=== PATIENT | male | born 1940 | race Caucasian/White ===

== ENCOUNTER 2020-03-12 15:41 | Emergency (ER) | payer MEDICARE ==
[~2020-03-12] VITALS: Ht 172.7 cm; Wt 107.8 kg
[~2020-03-12 15:41] MED LIST: AMLO5TAB10 PO; ASPI-496 PO; CARV6.2512 PO; CHOL100011 PO; FINA5TAB4 PO; HYDR-3341 PO; IBUP100T9 PO; LISI-167 PO; LISI-465 PO; MELA5TAB14 PO; MIRA50TA PO; MULT-658 PO; PANT40TA6 PO; SIMV20TA PO
[2020-03-12] MEDS ORDERED: VISIPAQUE 270 MG/ML, 50ML BOTTLE ONE ×2 (16:15→16:59)
[2020-03-12] MEDS ORDERED: ACET650S21 PO (16:17)
--- NOTE | 2020-03-12 16:29 | NUR ---
PT GOING TO RAD
[2020-03-12] MEDS ORDERED: OXYcodone/APAP 5/325MG TABLET PO ONE (18:00)
[2020-03-12] MEDS ORDERED: OXYcodone/APAP 5/325MG TABLET ONE (18:02)
[2020-03-12] MEDS ORDERED: LIDOCAINE 1%, 10ML ONE (18:54)
--- NOTE | 2020-03-12 19:10 | NUR ---
assumed care of pt. report from Ivelisse PUENTE. pt here form assisted living facility with c/o flank pain and hematuria. pt has bilateral nephrostomy tubes and and davis in place. all tubes have bloody drainage present. pt to go to IR for tube adjustment.
--- NOTE | 2020-03-12 19:12 | NUR ---
pt transported to IR via gurney with transport
[2020-03-12] MEDS ORDERED: FENTANYL PF 100 MCG/2ML ONE ×2 (19:17)
[2020-03-12] MEDS ORDERED: FLUMAZENIL 0.1 MG/1 ML, 5ML ONE (19:17)
[2020-03-12] MEDS ORDERED: MIDAZOLAM 1 MG/ML, 5ML ONE (19:17)
[2020-03-12] MEDS ORDERED: NALOXONE 1 MG/ML, 2ML ONE (19:17)
--- NOTE | 2020-03-12 19:56 | NUR ---
pt is still in IR
[2020-03-12] MEDS ORDERED: VISIPAQUE 320MG/ML, 50ML BOTTLE ONE (20:17)
--- NOTE | 2020-03-12 20:25 | NUR ---
pt returned to room from IR. New L nephrostomy tube placed. pt has bloody drainage. resting in position of comfort at this time. no apparent resp distress
--- NOTE | 2020-03-12 21:05 | NUR ---
pt reports that he is having increased pain and is requesting more pain medication. Dr. Izaguirre notified. pt to be medicated and then D/C back to assisted living facility
[2020-03-12] MEDS ORDERED: ONDANSETRON 2MG/ML, 2ML IVPush ONE (21:30)
[2020-03-12] MEDS ORDERED: MORPHINE SULFATE 4 MG/ML, 1ML ONE (21:33)
[2020-03-12] MEDS ORDERED: ONDANSETRON 2MG/ML, 2ML ONE (21:33)
[2020-03-12] MEDS: MORPHINE SULFATE 4 MG/ML, 1ML IVPush PRN (21:41)
--- NOTE | 2020-03-12 21:56 | NUR ---
telephone report given to Deborah PUENTE at [facility]
--- NOTE | 2020-03-12 22:30 | NUR ---
after investigaytion it has been determined that the patient normally lives at the [facility] but is currently a patient at [facility] for his interventions. pt is adamantly refusing to return to [facility] and states that he wants to be D/C back to the [facility]. throughput and charge entry clerk notified
--- NOTE | 2020-03-12 22:45 | NUR ---
Further discussion with patient and throughput RN. pt continues to refuse transfer to [facility]
--- NOTE | 2020-03-12 23:00 | NUR ---
pt is now agreeable to return to [facility] to continue his care. throughput Rn aware and is attempting to arrange transport at this time. pt is resting in position of comfort in no apparent distress. lights dimmed
--- NOTE | 2020-03-12 23:06 | NUR ---
RONNI RN: PT D/C'D FROM ED, SENT TRANSPORT REQUEST TO [facility] FOR PT TRANSFER BACK TO [facility].
--- NOTE | 2020-03-12 23:57 | NUR ---
no changes. pt resting in position of comfort. warm blankets given. pt updated on POC. pt verifies that he is agreeable to returning to [facility] tonight. awaiting transport
[2020-03-13] MEDS ORDERED: MORPHINE SULFATE 4 MG/ML, 1ML ONE (01:30)
[2020-03-13 01:34] VITALS: BP 147/90
[2020-03-13] MEDS: MORPHINE SULFATE 4 MG/ML, 1ML IVPush PRN (01:34)
--- NOTE | 2020-03-13 01:34 | NUR ---
PT MEDICATED FOR PAIN AND UPDATED ON POC TO BE D[facility]C [facility]. PT AGREEABLE TO PLAN REQ WATER AT THIS TIME
--- NOTE | 2020-03-13 01:44 | NUR ---
TASK RN: REPORT OF PT FROM KWAME MEDINA AND ASSUMING TEMPORARY CARE OF PT AT THIS TIME.
--- NOTE | 2020-03-13 02:31 | NUR ---
PT LEFT VIA [facility] TO [facility] AT THIS TIME
[2020-03-16] MEDS ORDERED: LISI-420 PO (00:06)
[2020-03-16] MEDS ORDERED: AMLO5TAB10 PO (00:06)
== END 2020-03-13 02:32 | disposition home or self-care (01) ==
LOC: ED 17:01
DX: T83.092A Other mechanical complication of nephrostomy catheter, initial encounter (principal); I10 Essential (primary) hypertension; E78.00 Pure hypercholesterolemia, unspecified; Z87.891 Personal history of nicotine dependence; Z85.51 Personal history of malignant neoplasm of bladder; Z85.46 Personal history of malignant neoplasm of prostate
CPT/HCPCS: 50432; 74425; 76937; 96374; 96375; 96376; 99285; C1729; C1769; C1894; J2250; J2270; J2405; J3010; J3490; Q9966; Q9967; J2310

== ENCOUNTER 2020-09-19 12:40 | Emergency (ER) | payer MEDICARE ==
[~2020-09-19] VITALS: Ht 172.7 cm; Wt 98.0 kg
[~2020-09-19 12:40] MED LIST changes: +ACET650S21 PO; +AMLO-210 PO; -AMLO5TAB10 PO; +CLOT15CR6 EXT; +HYDR-3241 PO; +LISI20TA21 PO; +SIMV20TA19 PO
[2020-09-19] MEDS ORDERED: AMOX-291 PO (13:14)
--- NOTE | 2020-09-19 13:55 | NUR ---
UA sample from left nephrostomy tube obtained with 425mL clear yellow uop present and sent with laboratory monitor to lab. Right nephrostomy tube with less than 5mL present in drng bag and what was present was walked to lab by this RN at this time. Both samples were labeled with which nephrostomy tube they came from.
[2020-09-19] MEDS ORDERED: HYDROcodone/APAP 5/325 TABLET PO ONE (14:00)
[2020-09-19] MEDS ORDERED: SODIUM CHLORIDE 0.9% 1,000ML IVBOLUS ONE (14:00)
[2020-09-19] MEDS ORDERED: HYDROcodone/APAP 5/325 TABLET ONE (14:02)
[2020-09-19 14:04] LABS: MICROSCOPIC AUTO
--- NOTE | 2020-09-19 14:05 | NUR ---
Pt able to pass the swallow eval and given [place] for c/o pain at this time.
[2020-09-19 14:08] LABS: MEAN CORPUSCULAR HEMOGLOBIN 28.3 pg (27.5-34.5); MEAN CORPUSCULAR HGB CONC 33.8 g/dL (33.2-36.2); MEAN PLATELET VOLUME 7.5 fL (7.4-10.4); PLATELET COUNT 419 x10^3/uL (130-400); RED BLOOD COUNT 3.72 x10^6/uL (4.38-5.82); RED CELL DISTRIBUTION WIDTH 17.3 % (9.4-14.8)
[2020-09-19 14:42] LABS: ALANINE AMINOTRANSFERASE 30 U/L (12-78); ALBUMIN 3.4 g/dL (3.4-5.0); ANION GAP 10 mmol/L (5-15); CHLORIDE 100 mmol/L (98-107); CREATININE 1.46 mg/dL (0.7-1.3)
[2020-09-19 14:45] LABS: ALKALINE PHOSPHATASE 69 U/L (45-117); BILIRUBIN,TOTAL 0.3 mg/dL (0.2-1.0); TOTAL PROTEIN 7.2 g/dL (6.4-8.2)
[2020-09-19 15:03] LABS: MD YES
[2020-09-19 15:08] LABS: BASOS#(MANUAL) 0.08 x10^3/uL (0-0.1); BASOS% (MANUAL) 1 % (0-1); EOS% (MANUAL) 9 % (1-7); LYMPH#(MANUAL) 0.78 x10^3/uL (1-3.4); LYMPHS% (MANUAL) 10 % (22-44); MONOS#(MANUAL) 0.23 x10^3/uL (0.3-2.7); MONOS% (MANUAL) 3 % (2-9); SEG#(MANUAL) 6.01 x10^3/uL (1.8-6.8); SEGS% (MANUAL) 77 % (42-75)
[2020-09-19 15:10] LABS: ANISOCYTOSIS 1+
[2020-09-19 15:11] LABS: <PLATELET ESTIMATE> INCREASED; <PLT MORPHOLOGY> NORMAL PLT MORPH
--- NOTE | 2020-09-19 15:15 | NUR ---
Report given to KWAME Rodriguez and care transferred.
[2020-09-19] MEDS ORDERED: MORPHINE SULFATE 4 MG/ML, 1ML ONE (15:52)
[2020-09-19] MEDS ORDERED: OMNIPAQUE 350 MG/ML, 100ML BOTTLE ONE (16:21)
[2020-09-19] MEDS ORDERED: MORPHINE SULFATE 4 MG/ML, 1ML IVPush ONE (16:30)
--- NOTE | 2020-09-19 16:58 | NUR ---
pt brother joe calvillo called for update, states he will be family carlaon as needed. phone number as follows: [phone]
--- NOTE | 2020-09-19 17:05 | NUR ---
pt back from imaging, able to communicate in short replies. pt informed of ct result indicating constipation. pt states he had a small bowel movememnt this morning. pt on library monitor, with no signs or symptoms of acute dsitress noted respirations even and unlabored. pt states pain is better since admin of iv morphine. in position of comfort. bed rails up bilaterally and call light in hand.
--- NOTE | 2020-09-19 17:54 | NUR ---
pt called rn to bedside, expressed concern regarding plan to dc to home. pt states he doesnt feel safe to go home, asking for inpt, states he would rather be in the hospital than at an snf or rehab facility. this rn will bring issue to md. pt in bed with no signs or symptoms of acute distress noted respirations even and unlabored, on cardiac rn with bed rails up bilaterally and call light within reach
--- NOTE | 2020-09-19 18:32 | NUR ---
rn at bedside with sw, pt now states that he feels safe to go home. [facility] ride being arranged by throughput rn. pt in bed with no signs or symptoms of acute distress noted respirations even and unlabored
[2020-09-19 18:37] VITALS: BP 132/76
--- NOTE | 2020-09-19 18:44 | NUR ---
this rn updated family member on plan of care, family member verbalizes understanding and agreement with plan of care. this rn also called the [facility] facility to update staff on pt status, no answer, message left with update. [employer] eta [id number]
--- NOTE | 2020-09-19 20:18 | NUR ---
this rn got a call from pt home facility stating that they dont have a nurse or executive on duty to check pt back in and therefor pt cannot be accepted back to facility. this rn asked why this was never communicated to me during the attempts to call for report, and technical solutions consultant states that there was no nurse to answer the phone to share that information. facility states that the soonest they can have a nurse to check in pt is in am. per technical solutions consultant, pt will be returned to ed to board until morning. charge nurse aware. technical solutions consultant also states that there is no production operations manager or maternity floor supervisor in place at facility to make any kind of descision about pt. this rn asked why they sent pt to ed without a plan to receive him back, technical solutions consultant unable to explain.
== END 2020-09-19 19:36 | disposition home or self-care (01) ==
LOC: ED 15:14
DX: R41.82 Altered mental status, unspecified (principal); R53.1 Weakness; M54.6 Pain in thoracic spine; I45.10 Unspecified right bundle-branch block; I10 Essential (primary) hypertension; Z86.73 Personal history of transient ischemic attack (TIA), and cerebral infarction without residual deficits; Z85.51 Personal history of malignant neoplasm of bladder; Z85.46 Personal history of malignant neoplasm of prostate
CPT/HCPCS: 36415; 70450; 71045; 74177; 80053; 81001; 82140; 85025; 87086; 93005; 96361; 96374; 99285; J2270; J7030; Q9967

== ENCOUNTER 2020-09-19 20:26 | Emergency (ER) | payer MEDICARE ==
[~2020-09-19] VITALS: Ht 172.7 cm; Wt 75.0 kg
[~2020-09-19 20:26] MED LIST changes: +AMOX-291 PO
--- NOTE | 2020-09-19 20:46 | NUR ---
BORUGHT IN MY [facility] FROM [facility]. PT WAS NOT ACCEPTED BACK TO FACILITY DUE TO FACILITY WANTED A NEGATIVE COVID TEST. WON'T ACCEPT PT BACK UNTIL MORNING. BROTHR ANDREW [phone]
[2020-09-19] MEDS ORDERED: BISACODYL 10 MG SUPP PR PRN (21:30)
[2020-09-19] MEDS ORDERED: PROMETHAZINE 25 MG/ML, 1ML IM PRN (21:30)
[2020-09-19] MEDS ORDERED: ONDANSETRON ODT 4 MG PO PRN (21:30)
[2020-09-19] MEDS ORDERED: hydrALAzine 20 MG/ML, 1ML IVPush PRN (21:30)
[2020-09-19] MEDS ORDERED: ONDANSETRON 2MG/ML, 2ML IVPush PRN (21:30)
[2020-09-19] MEDS ORDERED: ACETAMINOPHEN 325 MG TABLET PO PRN (21:30)
[2020-09-19] MEDS ORDERED: POLYETHYLENE GLYCOL 17 GM PACKET PO PRN (21:30)
--- NOTE | 2020-09-19 21:35 | NUR ---
MOVED PT FROM [facility] TO CHAIR, CLEANSED AND REBANDAGED HIS LEFT UROSTOMY DRESSING, EMPTIED UROSTOMY WITH 250 ML. MOVED PT TO HOSPITAL BED. ATTACHED TO MONITORS, VSS. BED IN LOW POSITION. CALL LIGHT WITHIN REACH. FED PT SNACKS AND GAVE DRINKS.
[2020-09-19] MEDS ORDERED: HEPARIN 5,000 UNITS/ML, 1ML ONE (22:44)
[2020-09-19] MEDS ORDERED: AMOXICILLIN 500 MG CAPSULE ONE (22:44)
[2020-09-19] MEDS: AMOXICILLIN 500 MG CAPSULE PO SCH (22:47)
[2020-09-19] MEDS: HEPARIN 5,000 UNITS/ML, 1ML SQ SCH (22:48)
--- NOTE | 2020-09-20 01:18 | NUR ---
PATIENT RESTING IN BED, NO NOTED ACUTE DISTRESS. VSS. PATIENT'S CALL LIGHT WITHIN REACH, BED IN LOWEST LOCKED POSITION. WILL CONTINUE TO MONITIOR.
--- NOTE | 2020-09-20 03:47 | NUR ---
PATIENT HIT CALL LIGHT. AIDED WITH REPOSITIONING. WATER AND APPLE SAUCE GIVEN TO PATIENT. PATIENT TOLERATED WELL. NO NOTED NEEDS AT THIS TIME. CALL LIGHT WITHIN REACH, LIGHTS DIMMED.
[2020-09-20] MEDS ORDERED: OXYcodone IR 5MG TABLET ONE ×3 (04:21→16:13)
[2020-09-20] MEDS: OXYcodone IR 5MG TABLET PO PRN ×3 (04:22→16:16)
--- NOTE | 2020-09-20 04:27 | NUR ---
PATIENT STATED THAT HE WAS IN PAIN, GIVEN PAIN MEDICATION PER MAR. AIDED WITH REPOSTIONING.
--- NOTE | 2020-09-20 04:30 | NUR ---
EMPTIED CLEAR YELLOW URINE 1000ML FROM UROSTOMY.
[2020-09-20 04:41] LABS: BASOPHILS % (AUTO) 1 % (0-1); EOSINOPHILS % (AUTO) 12 % (1-7); LYMPHOCYTES % (AUTO) 20 % (22-44); MEAN CORPUSCULAR HEMOGLOBIN 28.6 pg (27.5-34.5); MEAN CORPUSCULAR HGB CONC 34.1 g/dL (33.2-36.2); MONOCYTES % (AUTO) 9 % (2-9); NEUTROPHILS % (AUTO) 57 % (42-75); PLATELET COUNT 435 x10^3/uL (130-400); RED CELL DISTRIBUTION WIDTH 17.8 % (9.4-14.8)
[2020-09-20 04:42] LABS: MD NO
[2020-09-20 04:53] LABS: ALANINE AMINOTRANSFERASE 26 U/L (12-78); ALBUMIN 3.2 g/dL (3.4-5.0); ANION GAP 8 mmol/L (5-15); CALCIUM 8.6 mg/dL (8.5-10.1); CHLORIDE 102 mmol/L (98-107); CREATININE 1.38 mg/dL (0.7-1.3)
[2020-09-20 04:54] LABS: ALKALINE PHOSPHATASE 62 U/L (45-117); BILIRUBIN,TOTAL 0.3 mg/dL (0.2-1.0); TOTAL PROTEIN 6.7 g/dL (6.4-8.2)
--- NOTE | 2020-09-20 05:02 | NUR ---
PATIENT RESTING IN BED, NO NOTED NEEDS AT THIS TIME. CALL LIGHT WITHIN REACH. WILL CONTINUE TO MONITOR.
--- NOTE | 2020-09-20 06:02 | NUR ---
PATIENT RESTING IN BED, NO NOTED ACUTE DISTRESS. CALL LIGHT WITHIN REACH, BED IN LOWEST LOCKED POSITION, SIDE RAILS UP. VSS.
--- NOTE | 2020-09-20 06:58 | NUR ---
PATIENT REPORT GIVEN TO KWAME LIM.
[2020-09-20] MEDS ORDERED: SENNA/DOCUSATE TABLET PO SCH (09:00)
--- NOTE | 2020-09-20 09:44 | NUR ---
PT HAD BOWEL MOVEMENT IN BED. PT CLEANED UP, NEW GOWN PUT ON, AND FRESH LINENS PLACED ON THE BED. VSS. BED RAILS UP, BED INLOWEST POSITION. PT CALL LIGHT WITHIN REACH. PT FED BREAKFAST BY MOAEC.
[2020-09-20] MEDS ORDERED: AMOXICILLIN 500 MG CAPSULE ONE (11:43)
[2020-09-20] MEDS ORDERED: SENNA/DOCUSATE TABLET ONE (11:43)
[2020-09-20] MEDS ORDERED: HEPARIN 5,000 UNITS/ML, 1ML ONE (11:43)
[2020-09-20] MEDS: HEPARIN 5,000 UNITS/ML, 1ML SQ SCH (11:47)
[2020-09-20] MEDS: AMOXICILLIN 500 MG CAPSULE PO SCH (11:48)
--- NOTE | 2020-09-20 13:51 | NUR ---
PHONE REPORT TO TRUE BRYANT CASCADES
[2020-09-20 16:18] VITALS: BP 136/85
[2020-09-21] MEDS ORDERED: OXYcodone/APAP 5/325MG TABLET ONE (08:11)
== END 2020-09-20 16:48 | disposition home or self-care (01) ==
LOC: ED 20:32 → UNDOADMOB 20:42 → EDIP 20:42 → UNDOADMIN 20:48
DX: N28.9 Disorder of kidney and ureter, unspecified (principal); Z20.822 Contact with and (suspected) exposure to COVID-19; R53.1 Weakness; I10 Essential (primary) hypertension; Z85.51 Personal history of malignant neoplasm of bladder; Z85.46 Personal history of malignant neoplasm of prostate; Z86.73 Personal history of transient ischemic attack (TIA), and cerebral infarction without residual deficits
CPT/HCPCS: 36415; 80053; 83735; 84100; 85025; 87635; 96372; 99285; J1644

== ENCOUNTER 2020-09-21 06:34 | Inpatient (IN) | payer MEDICARE ==
[~2020-09-21] VITALS: Ht 172.7 cm; Wt 100.4 kg
--- NOTE | 2020-09-21 06:57 | NUR ---
REPORT FROM KWAME FUNEZ. X-RAY AT BS
[2020-09-21] MEDS ORDERED: SODIUM CHLORIDE FLUSH 10ML SYR IVF ONE (07:00)
--- NOTE | 2020-09-21 07:00 | NUR ---
report to haile alfaro
--- NOTE | 2020-09-21 07:25 | NUR ---
PT SITTING ON [place], NAD/VSS. NO NEEDS AT THIS TIME. CALL LIGHT WITHIN REACH
[2020-09-21] MEDS ORDERED: PIPERACILLIN/TAZO/PMX 3.375GM 50 ML IV ONE (07:30)
[2020-09-21 07:32] LABS: BASOPHILS % (AUTO) 2 % (0-1); EOSINOPHILS % (AUTO) 12 % (1-7); LYMPHOCYTES % (AUTO) 22 % (22-44); MEAN CORPUSCULAR HGB CONC 34.5 g/dL (33.2-36.2); MEAN PLATELET VOLUME 7.1 fL (7.4-10.4); MONOCYTES % (AUTO) 13 % (2-9); NEUTROPHILS % (AUTO) 52 % (42-75); PLATELET COUNT 425 x10^3/uL (130-400); RED BLOOD COUNT 3.66 x10^6/uL (4.38-5.82); RED CELL DISTRIBUTION WIDTH 17.9 % (9.4-14.8)
[2020-09-21 07:33] LABS: MD NO
[2020-09-21 07:38] LABS: ALANINE AMINOTRANSFERASE 24 U/L (12-78); ALBUMIN 3.3 g/dL (3.4-5.0); ANION GAP 7 mmol/L (5-15); CALCIUM 8.7 mg/dL (8.5-10.1); CHLORIDE 102 mmol/L (98-107); CREATININE 1.46 mg/dL (0.7-1.3)
[2020-09-21 07:43] LABS: ALKALINE PHOSPHATASE 62 U/L (45-117); BILIRUBIN,TOTAL 0.4 mg/dL (0.2-1.0); TOTAL PROTEIN 6.7 g/dL (6.4-8.2); TROPONIN I < 0.015 ng/mL (0.000-0.045)
[2020-09-21] MEDS ORDERED: PIPERACILLIN/TAZO/PMX 3.375GM 50 ML ONE (07:57)
[2020-09-21] MEDS ORDERED: OXYcodone/APAP 5/325MG TABLET PO ONE (08:30)
[2020-09-21] MEDS ORDERED: CLOTRIM/BETAMETH 1%/0.05% CRM EXT PRN (09:30)
[2020-09-21] MEDS ORDERED: POLYETHYLENE GLYCOL 17 GM PACKET PO PRN (09:30)
[2020-09-21] MEDS ORDERED: MELATONIN 5 MG TABLET PO PRN (09:30)
[2020-09-21] MEDS ORDERED: ONDANSETRON 2MG/ML, 2ML IVPush PRN (09:30)
[2020-09-21] MEDS ORDERED: VANCOMYCIN PER PHARMACY MC PRN (09:30)
--- NOTE | 2020-09-21 09:50 | NUR ---
Pt to be admitted to [facility], room 350. Report called to WYATT.
[2020-09-21 10:19] VITALS: BP 120/71
[2020-09-21] MEDS ORDERED: VANCOMYCIN 2,300 MG in SODIUM CHLORIDE 0.9% 500 ML IV ONE (11:00)
[2020-09-21] MEDS: AMLODIPINE 5 MG TABLET PO SCH (11:10)
[2020-09-21] MEDS: MULTIVITAMIN 1 TABLET PO SCH (11:11)
[2020-09-21] MEDS: ENOXAPARIN 40 MG/0.4 ML SQ SCH (11:11)
[2020-09-21] MEDS: FINASTERIDE 5 MG TABLET PO SCH (11:11)
[2020-09-21] MEDS: LISINOPRIL 40 MG TABLET PO SCH (11:11)
[2020-09-21] MEDS: PANTOPRAZOLE 40MG TABLET PO SCH (11:26)
[2020-09-21] MEDS: VANCOMYCIN 2,000 MG in SODIUM CHLORIDE 0.9% 500 ML IV SCH ×2 (12:53→15:21)
[2020-09-21 13:25] VITALS: BP 117/76
[2020-09-21] MEDS: ACETAMINOPHEN 325 MG TABLET PO PRN (15:33)
[2020-09-21] MEDS: PIPERACILLIN/TAZO/PMX 3.375GM 50 ML IV SCH (17:42)
[2020-09-21 19:31] VITALS: BP 118/71
[2020-09-21] MEDS ORDERED: SIMVASTATIN 20 MG TABLET PO SCH (21:00)
[2020-09-22] MEDS: PIPERACILLIN/TAZO/PMX 3.375GM 50 ML IV SCH ×2 (00:04→07:16)
[2020-09-22 01:04] VITALS: BP 129/78
[2020-09-22] MEDS: ACETAMINOPHEN 325 MG TABLET PO PRN (02:27)
[2020-09-22 05:32] LABS: CREATININE 1.52 mg/dL (0.7-1.3)
[2020-09-22 05:33] LABS: VANCOMYCIN,RANDOM 19.4 mcg/mL
[2020-09-22 06:46] VITALS: BP 121/76
[2020-09-22] MEDS: LISINOPRIL 40 MG TABLET PO SCH (07:16)
[2020-09-22] MEDS: FINASTERIDE 5 MG TABLET PO SCH (07:16)
[2020-09-22] MEDS: PANTOPRAZOLE 40MG TABLET PO SCH (07:16)
[2020-09-22] MEDS: MULTIVITAMIN 1 TABLET PO SCH (07:16)
[2020-09-22] MEDS: AMLODIPINE 5 MG TABLET PO SCH (07:16)
[2020-09-22] MEDS ORDERED: SENNA/DOCUSATE TABLET PO SCH (09:00)
[2020-09-22] MEDS ORDERED: VANCOMYCIN 2,000 MG in SODIUM CHLORIDE 0.9% 500 ML IV SCH (09:00)
[2020-09-22] MEDS: ENOXAPARIN 40 MG/0.4 ML SQ SCH (09:43)
[2020-09-22 12:21] VITALS: BP 124/78
== END 2020-09-22 15:21 | disposition home or self-care (01) | DRG 204 ==
LOC: ED 08:50 → EDIP 09:02 → 3N 10:10
PROVIDERS: ADMIT Internal Medicine; ATTEND Internal Medicine
DX: R06.00 Dyspnea, unspecified (principal); G81.94 Hemiplegia, unspecified affecting left nondominant side; J34.89 Other specified disorders of nose and nasal sinuses; I12.9 Hypertensive chronic kidney disease with stage 1 through stage 4 chronic kidney disease, or unspecified chronic kidney disease; N18.30 Chronic kidney disease, stage 3 unspecified; C67.9 Malignant neoplasm of bladder, unspecified; Z88.2 Allergy status to sulfonamides; Z88.8 Allergy status to other drugs, medicaments and biological substances; Z20.822 Contact with and (suspected) exposure to COVID-19; C61 Malignant neoplasm of prostate; K21.9 Gastro-esophageal reflux disease without esophagitis; N13.9 Obstructive and reflux uropathy, unspecified; N40.0 Benign prostatic hyperplasia without lower urinary tract symptoms; Z66 Do not resuscitate; Z80.52 Family history of malignant neoplasm of bladder; Z83.3 Family history of diabetes mellitus; Z86.61 Personal history of infections of the central nervous system; Z87.891 Personal history of nicotine dependence; I69.320 Aphasia following cerebral infarction; G40.909 Epilepsy, unspecified, not intractable, without status epilepticus
CPT/HCPCS: 36415; 71045; 71250; 78580; 80053; 80202; 82565; 83880; 84145; 84484; 85025; 85379; 87040; 87081; 87635; 93005; 93970; 96365; G0378; J1650; J2543; J3370; A9540; J7040

== ENCOUNTER 2020-10-20 11:20 | Day surgery (SDC) | payer MEDICARE ==
[2020-10-20] MEDS ORDERED: LIDOCAINE 1%, 10ML ONE ×2 (13:17→13:20)
[2020-10-20] MEDS ORDERED: FENTANYL PF 100 MCG/2ML ONE (13:33)
[2020-10-20] MEDS ORDERED: FLUMAZENIL 0.1 MG/1 ML, 5ML ONE (13:33)
[2020-10-20] MEDS ORDERED: MIDAZOLAM 1 MG/ML, 5ML ONE (13:33)
[2020-10-20] MEDS ORDERED: NALOXONE 1 MG/ML, 2ML ONE (13:33)
[2020-10-20] MEDS ORDERED: VISIPAQUE 270 MG/ML, 50ML BOTTLE ONE (14:25)
== END 2020-10-20 15:55 | disposition home or self-care (01) ==
LOC: RAD 11:20
PROVIDERS: ATTEND Urology
DX: Z43.6 Encounter for attention to other artificial openings of urinary tract (principal); N13.1 Hydronephrosis with ureteral stricture, not elsewhere classified; R39.15 Urgency of urination; I10 Essential (primary) hypertension; K21.9 Gastro-esophageal reflux disease without esophagitis; Z79.899 Other long term (current) drug therapy; Z85.46 Personal history of malignant neoplasm of prostate; Z87.891 Personal history of nicotine dependence; Z88.2 Allergy status to sulfonamides; Z88.8 Allergy status to other drugs, medicaments and biological substances; Z82.49 Family history of ischemic heart disease and other diseases of the circulatory system; Z80.52 Family history of malignant neoplasm of bladder
CPT/HCPCS: 50435; 99156; 99157; C1729; C1751; C1769; J2250; J3010; Q9966; J2310